=== PATIENT | female | born 1955 | race Caucasian/White ===

== ENCOUNTER 2018-09-02 07:21 | Day surgery (SDC) | payer BC ==
[~2018-09-02] VITALS: Ht 167.6 cm; Wt 78.9 kg
[~2018-09-02 07:21] MED LIST: B-121000 MC2 PO; FOLGARD TABLET1 EAC1 PO; NORCO 5-325 TA1 EACH PO; PREMARIN1.25 MG PO
--- NOTE | 2018-09-02 09:17 | NUR ---
09/02/18 0917 Sheets,Teodora 0911 PT ARRIVED TO PACU ON 3L VIA NC, RESP EVEN AND UNLABORED. SNORING NOTED. VSS. ABD SOFT AND ROUND.
--- NOTE | 2018-09-03 11:35 | OR ---
[facility] [address], [place] [address] Signed DATE OF OPERATION: 09/02/2018 SURGEON: Alejandra Fournier MD PREOPERATIVE DIAGNOSIS: Screening. POSTOPERATIVE DIAGNOSES: 1. A 3 mm cecal polyp (periappendiceal). 2. A 3 mm polyp at 58 cm. 3. Single diverticulum with stool at 56 cm. PROCEDURE: Colonoscopy with hot biopsy. ESTIMATED BLOOD LOSS: None. INDICATIONS: Keaton is a 63-year-old female, who came to us in 2006 for a screening colonoscopy. This was unremarkable. She returns for a followup colonoscopy. She has no lower GI complaints. There is a question whether or not she has two uncles with colon cancer. Nevertheless, she told me she will not come every 5 years, she said she will come every 10 at the most. In the office, I gave her a pamphlet on colonoscopy. We looked at that together along with the risks and benefits. We also reviewed the written instructions for the bowel prep. She also understands the need for IV conscious sedation. She had expressed understanding and wished to proceed. PROCEDURE NOTE: Keaton was taken into our endoscopy suite and placed in the left lateral decubitus position. She was given IV sedation with 7 mg of Versed and 150 mcg of fentanyl. A digital rectal exam was performed and this was unremarkable. The adult colonoscope was introduced and advanced all around into the cecum under direct visualization of camera without difficulty. Her prep was good. The scope was slowly withdrawn. Pictures were taken throughout for photodocumentation. The above-mentioned polyps were easily removed with the help of hot biopsy forceps. We saw a single diverticulum with some stool in it at 56 cm. The rectum was unremarkable. Upon retroflexion of the scope, there was no additional pathology noted above the anal canal. After this, the gas was suctioned out, colonoscope removed. Keaton tolerated the procedure quite well. Electronically Signed By: ALEJANDRA FOURNIER MD 09/03/18 0747 Electronically Signed By: ALEJANDRA FOURNIER MD 09/07/18 0805 PATIENT NAME: KEATON CARRASCO OPERATIVE REPORT DATE OF : 53 REPORT #: [id number] PHYSICIAN: ALEJANDRA FOURNIER MD PCP: HIRO TILLMAN MD REPORT IS CONFIDENTIAL AND NOT TO BE RELEASED WITHOUT AUTHORIZATION [address] [address] Signed RECOMMENDATIONS: I will see Keaton back in my office in 7 to 14 days to review her results. Alejandra Fournier MD ALB/MODL /[id number] cc: MD Lisa Barrios MD Andrew L Bower, MD Copies: HIRO TILLMAN MD, PATRICIA J MD BOWER, ANDREW L MD ~ Electronically Signed By: ALEJANDRA FOURNIER MD 09/03/18 0747 Electronically Signed By: ALEJANDRA FOURNIER MD 09/07/18 0805 PATIENT NAME: KEATON CARRASCO OPERATIVE REPORT DATE OF : 53 REPORT #: [id number] PHYSICIAN: ALEJANDRA FOURNIER MD PCP: HIRO TILLMAN MD REPORT IS CONFIDENTIAL AND NOT TO BE RELEASED WITHOUT AUTHORIZATION
== END 2018-09-02 09:55 | disposition home or self-care (01) ==
LOC: OPS 07:21 → DS 07:21 → OPS 08:15 → DS 08:15 → OPS 09:55
PROVIDERS: Colon & Rectal Surgery
PROC: 0DBE8ZZ Excision of Large Intestine, Via Natural or Artificial Opening Endoscopic (ICD-10-PCS; 2018-09-02)
PROC: 0DBH8ZZ Excision of Cecum, Via Natural or Artificial Opening Endoscopic (ICD-10-PCS; principal; 2018-09-02 08:15)
DX: Z12.11 Encounter for screening for malignant neoplasm of colon (principal); D12.0 Benign neoplasm of cecum; D12.6 Benign neoplasm of colon, unspecified; K57.30 Diverticulosis of large intestine without perforation or abscess without bleeding; E78.00 Pure hypercholesterolemia, unspecified; Z79.899 Other long term (current) drug therapy
CPT/HCPCS: 99153; G0500; J2250; J3010; J7120

== ENCOUNTER 2021-05-18 06:10 | Emergency (ER) | payer MEDICARE, OTHER ==
[~2021-05-18] VITALS: Ht 167.6 cm; Wt 78.7 kg
[2021-05-18] MEDS ORDERED: HYDROCODON-ACE1 EA10 PO (06:40)
[2021-05-18] MEDS ORDERED: AMOXICILLIN500 MG PO (06:40)
== END 2021-05-18 06:54 | disposition home or self-care (01) ==
LOC: ED 06:10
DX: U07.1 COVID-19 (principal)
CPT/HCPCS: 99283; U0003

== ENCOUNTER 2024-11-29 07:33 | Day surgery (SDC) | payer MEDICARE, OTHER ==
[~2024-11-29] VITALS: Ht 167.6 cm; Wt 80.0 kg
[~2024-11-29 07:33] MED LIST changes: +AMOXICILLIN500 MG PO; +BUPROPION HCL100 MG PO; +FISH OIL 1,2001 EACH PO; +HYDROCODON-ACE1 EA10 PO; +IBLOOD GLUCOSE TEST STRIP 1 EA TEST VI PRN; +IRON325 M1 PO; +LACTATED RINGER'S 1,000 ML IV SCH; +LIDOCAINE HCL 1% 5 ML SDV INJ ONE; +MAGNESIUM250 MG PO; +PROVIGIL100 MG PO; +VITAMIN B121000 MCG PO; +VITAMIN D325 MC2 PO
[2024-11-29 08:12] VITALS: BP 114/74
[2024-11-29] MEDS ORDERED: LIDOCAINE HCL 2% 5 ML SDV ONE (10:08)
--- NOTE | 2024-11-29 10:40 | NUR ---
11/29/24 1040 Ingrid Holley 1035-PATIENT ARRIVED TO PACU ON RA RR EVEN NONAROUSABLE LAYING LEFT LATERAL. IVF INFUSING. SR HR 70'S. RA GREATER THAN 95% RR EVEN. PASSING GAS. ABDOMEN SOFT.
[2024-11-29 11:07] VITALS: BP 127/73
--- NOTE | 2024-11-30 09:06 | OR ---
[facility] [address] [place], [place] [address] Signed DATE OF OPERATION: 11/29/2024 SURGEON: Patrick Martinez DO PREOPERATIVE DIAGNOSIS: Colon cancer screening. POSTOPERATIVE DIAGNOSIS: Colon cancer screening with sigmoid diverticulosis. PROCEDURE PERFORMED: Colonoscopy. ANESTHESIA: IV sedation. ESTIMATED BLOOD LOSS: None. DRAINS: None. COMPLICATIONS: None. DESCRIPTION OF PROCEDURE: The patient was brought to the GI lab and placed in the supine position. After induction of IV sedation, the patient was placed in the left lateral position and padded to the satisfaction of anesthesia. The Olympus video colonoscope was then introduced into the rectum and directed to the length of the rectosigmoid, sigmoid colon, descending colon, transverse colon, into the ascending colon and cecum under direct visualization. The colon was insufflated and general exploration of mucosal surfaces carried out. Cecum and ascending colon were without lesions or ulceration. No intrinsic or extrinsic masses appreciated. Scope was withdrawn, passed the hepatic flexure. In the transverse colon, no intrinsic or extrinsic masses were noted. Scope passed the splenic flexure into the descending colon. No intrinsic or extrinsic masses, lesions, or ulceration were appreciated. Scope was brought back into the sigmoid colon, some scattered sigmoid diverticula were noted, but no evidence of colitis was noted. No other intrinsic or extrinsic masses were appreciated. Scope was brought back near the rectosigmoid. Some scattered diverticula were noted above. No other masses were noted. Electronically Signed By: PATRICK MARTINEZ DO 11/30/24 0906 PATIENT NAME: KEATON CARRASCO OPERATIVE REPORT DATE OF : 53 REPORT #: [id number] PHYSICIAN: PATRICK MARTINEZ DO PCP: HIRO TILLMAN MD REPORT IS CONFIDENTIAL AND NOT TO BE RELEASED WITHOUT AUTHORIZATION [address] [place] [address] Signed The rectum was unremarkable. Scope was withdrawn. The patient tolerated the procedure well and went to recovery room in satisfactory condition. DO LENA Hernández/ROBINSON /[id number] Copies: ~ Electronically Signed By: PATRICK MARTINEZ DO 11/30/24 0906 PATIENT NAME: KEATON CARRASCO OPERATIVE REPORT DATE OF : 53 REPORT #: [id number] PHYSICIAN: PATRICK MARTINEZ DO PCP: HIRO TILLMAN MD REPORT IS CONFIDENTIAL AND NOT TO BE RELEASED WITHOUT AUTHORIZATION
== END 2024-11-29 11:10 | disposition home or self-care (01) ==
LOC: DSVR 07:33 → OPS 07:33 → DS 07:33 → OPS 09:40 → DSVR 10:32 → OPS 10:55 → DS 10:55 → OPS 11:10
PROVIDERS: ATTEND Surgery
PROC: 0DJD8ZZ Inspection of Lower Intestinal Tract, Via Natural or Artificial Opening Endoscopic (ICD-10-PCS; principal; 2024-11-29 09:40)
DX: R19.7 Diarrhea, unspecified (principal); K57.30 Diverticulosis of large intestine without perforation or abscess without bleeding; E78.00 Pure hypercholesterolemia, unspecified; Z79.899 Other long term (current) drug therapy
CPT/HCPCS: 00811; J2003; J2704; J7121